=== PATIENT | male | born 1995 | race American Indian/Alaskan Native ===

== ENCOUNTER 2016-11-12 08:28 | Emergency (ER) | payer OTHER ==
[2016-11-12 09:01] LABS: Bilirubin,Urine NEG (Negative); Blood,Urine LG (Negative); Ketones,Urine NEG (Negative); Leukocyte Esterase,Urine NEG (Negative); Mucus,Urine 1+ /HPF; Nitrite,Urine NEG (Negative); Urobilinogen,Urine < 2.0 mg/dL (<2.0); WBC,Urine < 1.0 /HPF (0.0-6.0)
[2016-11-12 09:08] LABS: RBC,Urine 0.2 /HPF (0.0-6.0)
[2016-11-12 09:25] LABS: Alanine Aminotransferase 59 units/L (7-56); Albumin 4.2 g/dL (3.9-5); Albumin/Globulin Ratio 1.3 %; Alkaline Phosphatase 33 units/L (35-129); Anion Gap 15 mmol/L; BUN/Creatinine Ratio 17; Basophils % (Auto) 0.6 % (0.0-1.8); Blood Urea Nitrogen 17 mg/dL (9-20); Calcium 9.1 mg/dL (8.4-10.2); Carbon Dioxide 27 mmol/L (22-30); Chloride 100.8 mmol/L (98-107); Eosinophils % (Auto) 2.7 % (0.0-4.3); Glucose 103 mg/dL (75-100); Hematocrit 45.2 % (35.5-45.6); Hemoglobin 14.9 gm/dl (11.8-15.2); Lipase 20 units/L (13-60); Mean Corpuscular HGB Conc 33 % (32-34); Mean Corpuscular Hemoglobin 31 pg (28-32); Mean Corpuscular Volume 93 fl (84-94); Platelet Count 289 K/mm3 (140-440); Potassium 3.9 mmol/L (3.6-5.0); Red Blood Count 4.84 M/mm3 (3.65-5.03); Red Cell Distribution Width 13.1 % (13.2-15.2); Sodium 139 mmol/L (137-145); Total Protein 7.5 g/dL (6.3-8.2); White Blood Count 8.4 K/mm3 (4.5-11.0)
--- NOTE | 2016-11-12 10:08 | Emergency Department Report ---
ED Abdominal Pain HPI - General Chief Complaint: Abdominal Pain Stated Complaint: ABD PAIN Source: patient Mode of arrival: Ambulatory Limitations: No Limitations - History of Present Illness Initial Comments: History near complaining of abdominal pain to right lower quadrant of abdomen radiating to right testicle and also right flank pain. He reports pain is 8 out of 10. Reports he has some testicular swelling and unsure why because he said he denies any trauma. Denies any urinary burning frequency or urgency. Denies nausea or vomiting. Denies any fever or chills. Eyes and a penile discharge. Pain is 8 out of 10 and colicky and he's tried [id number] medication without any help. Patient denies any medical problem and denies any history of kidney stones. He denies any blood in his urine. Denies being concerned for STDs. Patient is also requesting primary care doctor. Said that they're new to [facility] and needs to choose a primary care doctor. MD Complaint: abdominal pain, flank pain Onset/Timin -: days(s) Location: RLQ Radiation: R flank Migration to: no migration Severity: severe Severity scale (0 -10): 8 Quality: aching, other (colicky) Consistency: constant Improves With: rest Worsens With: movement Context: other (patient states that he suspect that he has a kidney infection) Associated Symptoms: denies: nausea, vomiting, diarrhea, fever, chills, constipation, dysuria, hematemesis, hematochezia, melena, hematuria, anorexia, syncope Treatments Prior to Arrival: other (OTC) - Related Data Previous Rx's Medication Instructions Recorded Last Taken Type Ciprofloxacin HCl [Ciprofloxacin 500 mg PO Q12HR #10 tab 11/12/16 Unknown Rx TAB] HYDROcodone/APAP 7.5-325 [[place] 1 each PO Q6HR PRN #12 tablet 11/12/16 Unknown Rx 7.5/325] Tamsulosin [Flomax] 0.4 mg PO QDAY #5 cap 11/12/16 Unknown Rx Allergies Allergy/AdvReac Type Severity Reaction Status Date / Time No Known Allergies Allergy Unverified 11/12/16 08:35 ED Review of Systems ROS: Stated complaint: ABD PAIN Other details as noted in HPI Comment: All other systems reviewed and negative Constitutional: no symptoms reported Respiratory: no symptoms reported Cardiovascular: denies: chest pain, palpitations, dyspnea on exertion, edema, syncope, paroxysmal nocturnal dyspnea Gastrointestinal: abdominal pain. denies: nausea, vomiting, diarrhea, constipation, hematemesis, melena, hematochezia Genitourinary: testicular pain. denies: urgency, dysuria, frequency, hematuria , discharge, testicular mass Musculoskeletal: back pain (flank pain, right). denies: joint swelling, arthralgia, myalgia Skin: denies: rash Neurological: denies: headache, weakness, numbness, paresthesias, confusion, abnormal gait, vertigo ED Past Medical Hx - Past Medical History Previous Medical History?: No - Surgical History Past Surgical History?: No - Family History Family history: no significant - Social History Smoking Status: Current Every Day Smoker Substance Use Type: Alcohol, Marijuana, Non Opiate Pain - Medications Home Medications: Home Medications Medication Instructions Recorded Confirmed Last Taken Type Ciprofloxacin HCl [Ciprofloxacin 500 mg PO Q12HR #10 tab 11/12/16 Unknown Rx TAB] HYDROcodone/APAP 7.5-325 [[place] 1 each PO Q6HR PRN #12 tablet 11/12/16 Unknown Rx 7.5/325] Tamsulosin [Flomax] 0.4 mg PO QDAY #5 cap 11/12/16 Unknown Rx ED Physical Exam - General Limitations: No Limitations General appearance: alert, in no apparent distress - Head Head exam: Present: atraumatic, normocephalic, normal inspection - Eye Eye exam: Present: normal appearance, PERRL, EOMI. Absent: periorbital swelling , periorbital tenderness Pupils: Present: normal accommodation - ENT ENT exam: Present: normal exam, normal orophraynx, mucous membranes moist - Neck Neck exam: Present: normal inspection, full ROM. Absent: tenderness, meningismus, lymphadenopathy - Respiratory Respiratory exam: Present: normal lung sounds bilaterally. Absent: respiratory distress, chest wall tenderness, accessory muscle use - Cardiovascular Cardiovascular Exam: Present: regular rate, normal rhythm, normal heart sounds. Absent: systolic murmur, diastolic murmur - GI/Abdominal GI/Abdominal exam: Present: soft, tenderness (right lower quadrant), normal bowel sounds. Absent: distended, guarding, rebound, rigid, organomegaly, mass, bruit, pulsatile mass, hernia - Extremities Exam Extremities exam: Present: normal inspection, full ROM, normal capillary refill , other (clubbing, cyanosis or edema. +2 pedal pulses to all extremities and no neurovascular compromise). Absent: tenderness, pedal edema, joint swelling, calf tenderness - Back Exam Back exam: Present: normal inspection, full ROM, CVA tenderness (R). Absent: tenderness, CVA tenderness (L), muscle spasm, paraspinal tenderness, vertebral tenderness, rash noted - Neurological Exam Neurological exam: Present: alert, oriented X3, normal gait, reflexes normal. Absent: motor sensory deficit - Psychiatric Psychiatric exam: Present: normal affect, normal mood - Skin Skin exam: Present: warm, dry, intact, normal color. Absent: rash ED Course Vital Signs 11/12/16 11/12/16 11/12/16 08:35 08:52 13:36 Temperature 98.1 F 98.4 F Pulse Rate 62 66 Respiratory 18 16 18 Rate Blood Pressure 140/94 Blood Pressure 139/78 [Left] O2 Sat by Pulse 100 99 99 Oximetry - Reevaluation(s) Reevaluation #1: 11/12/16 11:00 Patient given Dilaudid 1 mg IV and Zofran 4 mg IV along with 1 L of normal saline for pain and flank pain. He voiced relief of pain. Reevaluation #2: 11/12/16 15:01 Patient given Percocet 5/325 mg 2 tablets and additional liter of IV fluid. Patient to be discharged home and to follow-up with primary care physician and urologist which I will give him discharge instructions on foreign number and address. I discussed the patient is CT scan result in informed him that he has a kidney stone to his right UV junction with mild obstruction. He received a total of 2 L of IV fluid and now he said he pain is better. Patient has no evidence of appendicitis. ED Medical Decision Making - Lab Data Result diagrams: 11/12/16 08:53 11/12/16 08:53 Lab Results 11/12/16 11/12/16 11/12/16 Range/Units 08:45 08:53 08:53 WBC 8.4 (4.5-11.0) K/mm3 RBC 4.84 (3.65-5.03) M/mm3 Hgb 14.9 (11.8-15.2) gm/dl Hct 45.2 (35.5-45.6) % MCV 93 (84-94) fl MCH 31 (28-32) pg MCHC 33 (32-34) % RDW 13.1 L (13.2-15.2) % Plt Count 289 (140-440) K/mm3 Lymph % (Auto) 24.8 (13.4-35.0) % [place] % (Auto) 11.3 H (0.0-7.3) % Eos % (Auto) 2.7 (0.0-4.3) % Baso % (Auto) 0.6 (0.0-1.8) % Lymph # 2.1 (1.2-5.4) K/mm3 [place] # 0.9 H (0.0-0.8) K/mm3 Eos # 0.2 (0.0-0.4) K/mm3 Baso # 0.1 (0.0-0.1) K/mm3 Seg Neutrophils % 60.6 (40.0-70.0) % Seg Neutrophils # 5.1 (1.8-7.7) K/mm3 Sodium 139 (137-145) mmol/L Potassium 3.9 (3.6-5.0) mmol/L Chloride 100.8 (98-107) mmol/L Carbon Dioxide 27 (22-30) mmol/L Anion Gap 15 mmol/L BUN 17 (9-20) mg/dL Creatinine 1.0 (0.8-1.5) mg/dL Estimated GFR > 60 ml/min BUN/Creatinine Ratio 17 % Glucose 103 H (75-100) mg/dL Calcium 9.1 (8.4-10.2) mg/dL Total Bilirubin 0.40 (0.1-1.2) mg/dL AST 29 (5-40) units/L ALT 59 H (7-56) units/L Alkaline Phosphatase 33 L (35-129) units/L Total Protein 7.5 (6.3-8.2) g/dL Albumin 4.2 (3.9-5) g/dL Albumin/Globulin Ratio 1.3 % Lipase 20 (13-60) units/L Urine Color Yellow (Yellow) Urine Turbidity Clear (Clear) Urine pH 6.0 (5.0-7.0) Ur Specific [place] 1.023 (1.003-1.030) Urine Protein 30 mg/dl (Negative) mg/dL Urine Glucose (UA) Neg (Negative) mg/dL Urine Ketones Neg (Negative) mg/dL Urine Blood Lg (Negative) Urine Nitrite Neg (Negative) Urine Bilirubin Neg (Negative) Urine Urobilinogen < 2.0 (<2.0) mg/dL Ur Leukocyte Esterase Neg (Negative) Urine WBC (Auto) < 1.0 (0.0-6.0) /HPF Urine RBC (Auto) 0.2 (0.0-6.0) /HPF U Epithel Cells (Auto) < 1.0 (0-13.0) /HPF Urine Mucus 1+ /HPF Urine culture is pending - Radiology Data Radiology results: report reviewed CT scan of the abdomen and pelvis with IV contrast revealed 3.6 mm stones at the right UV junction with mild obstructive uropathy. There is no evidence of appendicitis. The liver, spleen, pancreas, gallbladder and adrenal glands are normal. There is a subcentimeter cyst in the upper pole of the left kidney which is otherwise normal. U/S of testes without ischemic changes, mild left varicocele and nonspecific hydroceles. - Medical Decision Making ED Course: Patient here with his family report these have been right lower quadrant pain radiating down to his right testicle and also right flank pain. Pain is controlled with 1 mg of Dilaudid/4 mg of Zofran IV and Percocet 5/325 2 tablets. He received a total of 2 L of IV fluid in emergency room. H&H CT scan of the abdomen and pelvis with IV contrast which revealed that he has a 3.6 mm stone at the right UV junction with mild obstructive uropathy and right perinephric inflammation otherwise normal. He also has a cyst on his upper pole of the left kidney. Patient had ultrasound of his testicles and he shows no evidence of ischemic change. Mild left varicocele interiorly and nonspecific mild hydroceles. I spoke with Dr. Velez regarding patient presentation, laboratory, diagnostics and clinical findings and he agrees the patient can be discharged home with follow-up with urology and primary care. Cbc stable, UA stable except large blood and 30 protein.Cmp stable except mildly elevated ALT and mild decrease Alkaline Phos. Labs and CT scan results communicated with the patient and he was understanding and is discharged diagnosis and treatment plan. Patient is stable and ready to be discharged home. Patient will be discharged home with his family prescription for [place], Cipro and Flomax. Patient referred to Dr. Rich for primary care in [place] [facility] for management of right UVJ kidney stone. Critical care attestation.: If time is entered above; I have spent that time in minutes in the direct care of this critically ill patient, excluding procedure time. ED Disposition Clinical Impression: Ureterovesical junction (UVJ) obstruction, Right ureteral stone, Right lower quadrant abdominal pain, Acute right flank pain, Testicular pain, right, Bilateral hydrocele, Left varicocele Hematuria Qualifiers: Hematuria type: unspecified type Qualified Code(s): R31.9 - Hematuria, unspecified Protein in urine Qualifiers: Proteinuria type: unspecified Qualified Code(s): R80.9 - Proteinuria, unspecified Disposition: TO HOME OR SELFCARE Is pt being admited?: No Does the pt Need Aspirin: No Condition: Stable Instructions: Kidney Stones (ED), Hydrocele (ED), Renal Colic (ED), Varicocele (ED), Acute Hematuria (ED), Testicle Pain (ED), Abdominal Pain (ED), Flank Pain (ED), Hydronephrosis (ED) Additional Instructions: You Have small right UVJ stone which is below your right kidney and she needed to increase U fluid intake and drink at least 1 gallon of water over the next 24 hours to help to flush stone. You also has some inflammation in the right kidney and this could be from passing the stone, I'll put you on antibiotics 5 days. Please state [place] for kidney stone pain but please do not drive or operate heavy machinery as this medication causes drowsiness Flomax and this will help to flush stone out of his system Follow-up with Dr. Loulou Rich for primary care and [place] [facility] for kidney stone, hydrocele and varicocele. He is referred to discharge instruction paperwork for referral and also for details on different diagnosis. If you develop increasing in flank pain, abdominal pain, blood in your urine, fever and/or chills, difficulty urinating please return to the emergency room [facility] Prescriptions: Ciprofloxacin HCl [Ciprofloxacin TAB] 500 mg PO Q12HR #10 tab HYDROcodone/APAP 7.5-325 [[place] 7.5/325] 1 each PO Q6HR PRN #12 tablet PRN Reason: Pain Tamsulosin [Flomax] 0.4 mg PO QDAY #5 cap Referrals: ALBERT SMITH MD [Staff Physician] - 2-3 Days [facility] [Provider Group] - 2-3 Days Forms: Accompanied Note, Work/School Release Form(ED)
[2016-11-12] MEDS ORDERED: NACL 0.9% 1000 ML 1,000 ML IV ONE ×2 (10:09→13:27)
[2016-11-12] MEDS ORDERED: DILAUDID IV ONE (10:09)
[2016-11-12] MEDS ORDERED: ZOFRAN IV ONE (10:09)
[2016-11-12] MEDS ORDERED: NACL ONE (10:17)
--- NOTE | 2016-11-12 11:15 | Ultrasound Report ---
Testicular ultrasound: Patient with right testicular pain for the past day improved with pain meds. The right testicle measures 2.2 x 2.9 x 4.5 cm. The left testicle measures 2 x 2.7 x 4.1 cm. Both testicles appear echogenically unremarkable. There is color Doppler as well as visual flow to both kidneys. The epididymis appears normal bilaterally. With Valsalva maneuver there is increased flow to the tail of the left epididymis. Bilateral small hydroceles are present. Impressions: 1. No evidence of ischemic change. 2. Mild left varicocele inferiorly. 3. Nonspecific mild hydroceles.
--- NOTE | 2016-11-12 12:24 | Cat Scan Report ---
CT of the abdomen and pelvis with IV contrast. History: Right lower quadrant pain. Findings: The liver, spleen, pancreas, gallbladder, and adrenal glands are normal. There is a subcentimeter cyst in the upper pole of the left kidney which is otherwise normal. There is a 3.6 mm stone at the right ureterovesical junction with mild right obstructive uropathy and perinephric inflammatory changes. There is delayed excretion in the right collecting system. There is no evidence of appendicitis. Impression: 3.6 mm stone at the right UV junction with mild obstructive uropathy.
[2016-11-12] MEDS ORDERED: PERCOCET 5/325 PO ONE (14:10)
[2016-11-12 15:48] VITALS: BP 115/74
== END 2016-11-12 15:47 | disposition home or self-care (01) ==
LOC: ED 08:28
DX: N13.5 Crossing vessel and stricture of ureter without hydronephrosis (principal); N20.1 Calculus of ureter; R10.31 Right lower quadrant pain; N43.3 Hydrocele, unspecified; N50.811 Right testicular pain; I86.1 Scrotal varices; R80.9 Proteinuria, unspecified; R31.9 Hematuria, unspecified; F12.10 Cannabis abuse, uncomplicated; F17.200 Nicotine dependence, unspecified, uncomplicated
CPT/HCPCS: 36415; 74177; 80053; 81001; 83690; 85025; 93975; 96361; 96374; 96375; 99284; J1170; J2405; J7030; Q9967

== ENCOUNTER 2018-10-22 10:13 | Emergency (ER) | payer OTHER, BC ==
[2018-10-22] MEDS ORDERED: TORADOL IM ONE (11:40)
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
[2018-10-22 12:20] VITALS: BP 112/70
== END 2018-10-22 12:18 | disposition home or self-care (01) ==
LOC: ED 10:13
DX: S46.912A Strain of unspecified muscle, fascia and tendon at shoulder and upper arm level, left arm, initial encounter (principal); V49.59XA Passenger injured in collision with other motor vehicles in traffic accident, initial encounter; Y93.89 Activity, other specified; Y92.488 Other paved roadways as the place of occurrence of the external cause; Y99.8 Other external cause status
CPT/HCPCS: 96372; 99282; J1885